=== PATIENT | female | born 1990 | race Caucasian/White ===

== ENCOUNTER 2016-11-25 09:28 | Emergency (ER) | payer OTHER ==
[~2016-11-25] VITALS: Ht 167.6 cm; Wt 53.5 kg
[~2016-11-25 09:28] MED LIST: METH500T3 PO; NAPR550 PO; TRAM50 PO
[2016-11-25 09:30] VITALS: BP 138/88; PULSE 124; RESP 20; TEMP 98.8; O2SAT 98
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
[2016-11-25 10:41] VITALS: PULSE 76
[2016-11-25] MEDS ORDERED: IBUPROFEN 800 MG TAB PO ONE (10:45)
[2016-11-25] MEDS ORDERED: METHOCARBAMOL 500 MG TAB PO ONE (10:45)
[2016-11-25] MEDS ORDERED: IBUP800T23 PO (11:09)
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
[2016-11-25] MEDS ORDERED: CYCL1TAB29 PO (11:28)
== END 2016-11-25 11:54 | disposition home or self-care (01) ==
LOC: NEPK 09:28
DX: S16.1XXA Strain of muscle, fascia and tendon at neck level, initial encounter (principal); S00.531A Contusion of lip, initial encounter; M25.511 Pain in right shoulder; M25.512 Pain in left shoulder; R51 Headache; V89.2XXA Person injured in unspecified motor-vehicle accident, traffic, initial encounter
CPT/HCPCS: 72040; 99284